=== PATIENT | male | born 1950 | race Caucasian/White ===

== ENCOUNTER 2018-11-11 15:46 | Emergency (ER) | payer MEDICARE ==
[~2018-11-11 15:46] MED LIST: Iopamidol 370 76% 100 ML VIAL ONE
[2018-11-11] MEDS ORDERED: Acetaminophen 500 MG TAB ONE (17:06)
[2018-11-11] MEDS ORDERED: Sodium Chloride 0.9% 1,000 ML ONE (17:06)
[2018-11-11 17:16] LABS: INR-International Normal Ratio 1.1; PTT 33.7 SEC (22.9-36.1); Prothrombin Time 14.3 SEC (12.0-14.7)
[2018-11-11 17:27] LABS: ALT (SGPT) 27 U/L (8-55); AST (SGOT) 20 U/L (5-34); Albumin 3.9 g/dL (3.4-4.8); Alkaline Phosphatase 78 U/L (40-150); Anion Gap 14 mmol/L (10-20); BUN (Urea Nitrogen) 12 mg/dL (8.4-25.7); Bilirubin, Total 1.3 mg/dL (0.2-1.2); Calc. Creatinine Clearance 0 mL/min (70-130); Calcium 9.1 mg/dL (7.8-10.44); Carbon Dioxide 25 mmol/L (23-31); Chloride 101 mmol/L (98-107); Estimated GFR-MDRD 59; Globulin 3.1 g/dL (2.4-3.5); Glucose 107 mg/dL (80-115); Potassium 4.2 mmol/L (3.5-5.1); Sodium 136 mmol/L (136-145)
[2018-11-11 17:37] LABS: Band 2 % (5-11); Eosinophils 5 % (0-10); Hemoglobin 13.9 g/dL (14.0-18.0); Lymphocytes 2 % (21-51); MDiff Complete? YES; Mean Corpuscular HGB CONC 32.9 g/dL (32.0-36.0); Mean Corpuscular Hemoglobin 26.3 pg (27.0-31.0); Mean Corpuscular Volume 79.8 fL (78.0-98.0); Mean Platelet Volume 6.7 fL (7.4-10.4); Metamyelocyte 1 % (0-0); Monocytes 5 % (0-10); Neutrophil 84 % (42-75); Platelet Count 144 thou/uL (130-400); Platelet Morphology Comment Appears Adequate; RBC Morphology Normal; Reactive Lymphocytes 1 % (0-10); Red Blood Cell (RBC) Count 5.29 mill/uL (4.70-6.10)
[2018-11-11 17:44] LABS: CKMB 0.6 ng/mL (0-6.6)
[2018-11-11] MEDS ORDERED: Aspirin Chewable 81 MG TAB ONE (18:12)
--- NOTE | 2018-11-11 18:21 | CT ---
CT ABDOMEN AND PELVIS WITH IV CONTRAST: 11/11/18 HISTORY: Fever and black stools. FINDINGS: The lung bases are clear. No calcified gallstones are noted. No free air, free fluid or lymphadenopat hy seen in the abdomen or pelvis. There is a 6 mm low density lesion in the liver, too small to bhakti cterize. The spleen, pancreas and adrenal glands are normal. There is a 2 cm cortical cyst in the ri ght kidney. There is scarring in the left kidney. There are vascular calcifications without evidence of aneurysmal dilatation of the abdominal aorta. T he small bowel loops are not abnormally dilated. There is fecal material in the colon. There is mild prostatic enlargement. An abnormally dilated fluid filled appendix is not visualized. There are vasc ular calcifications without evidence of aneurysmal dilatation of the abdominal aorta. There are degen erative changes in the spine. IMPRESSION: No acute process. POS: SHANDRA
== END 2018-11-11 19:28 | disposition short-term general hospital (02) ==
LOC: MADERS 15:46
DX: R10.84 Generalized abdominal pain (principal); R74.8 Abnormal levels of other serum enzymes; E03.9 Hypothyroidism, unspecified; E78.5 Hyperlipidemia, unspecified; E78.00 Pure hypercholesterolemia, unspecified; Z79.899 Other long term (current) drug therapy
CPT/HCPCS: 74177; 80053; 82274; 82553; 83605; 84484; 85025; 85610; 85730; 87040; 93005; 96360; 96361; J7050; Q9967

== ENCOUNTER 2021-01-25 06:30 | Emergency (ER) | payer MEDICARE ==
[2021-01-25] MEDS ORDERED: Oxymetazoline HCl 0.05% (30 ML BOT) ONE (07:13)
== END 2021-01-25 08:11 | disposition home or self-care (01) ==
LOC: MADERS 06:30
DX: R04.0 Epistaxis (principal); E03.9 Hypothyroidism, unspecified; I10 Essential (primary) hypertension; I24.9 Acute ischemic heart disease, unspecified; E78.5 Hyperlipidemia, unspecified; Z95.5 Presence of coronary angioplasty implant and graft; Z79.82 Long term (current) use of aspirin; Z79.02 Long term (current) use of antithrombotics/antiplatelets; Z79.899 Other long term (current) drug therapy
CPT/HCPCS: 99283

== ENCOUNTER 2022-06-30 10:01 | Outpatient (CLI) | payer MEDICARE | END 2022-06-30 10:02 | disposition home or self-care (01) | LOC: MADRAD 10:01 | PROVIDERS: ATTEND Family Medicine | DX: R05.9 Cough, unspecified (principal); J94.8 Other specified pleural conditions | CPT/HCPCS: 71046 ==

== ENCOUNTER 2022-07-09 09:33 | Outpatient (CLI) | payer MEDICARE | END 2022-07-09 09:34 | disposition home or self-care (01) | LOC: MADRAD 09:33 | PROVIDERS: ATTEND Family Medicine | DX: R07.9 Chest pain, unspecified (principal) | CPT/HCPCS: 71046 ==